=== PATIENT | female | born 1985 | race American Indian/Alaskan Native ===

== ENCOUNTER 2017-01-10 21:03 | Emergency (ER) | payer SELFPAY ==
[2017-01-10 21:25] VITALS: BP 106/64
--- NOTE | 2017-01-10 22:03 | EDM.PDOC ---
[id number]: GOT BIT IN ABD, [id number] Time Seen by Provider: 01/10/17 22:09 Source of Information: Reports: Patient History Limitations: Reports: No Limitations - History of Present Illness INITIAL COMMENTS - FREE TEXT/NARRATIVE: Red spot on lower abdomen, red swollen tender, started out as small pimple type and getting bigger, able to "squeeze some pus out of it today. 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 Psychiatric History: Reports: Depression - Infectious Disease History Infectious Disease History: Reports: Hepatitis C Social & Family History - Family History Family Medical History: Noncontributory - Tobacco Use Smoking Status *Q: Current Every Day Smoker Years of Tobacco use: 17 Packs/Tins Daily: 1 Second Hand Smoke Exposure: Yes - Caffeine Use Caffeine Use: Reports: Coffee - Recreational Drug Use Recreational Drug Use: Yes Drug Use in Last 12 Months: Yes ED ROS GENERAL - Review of Systems Review Of Systems: See Below Constitutional: Reports: No Symptoms HEENT: Reports: No Symptoms Respiratory: Reports: No Symptoms Cardiovascular: Reports: No Symptoms GI/Abdominal: Reports: No Symptoms Skin: Reports: Wound (mid abdomen above jeans waist red firm ) Neurological: Reports: No Symptoms Psychiatric: Reports: No Symptoms ED EXAM, SKIN/RASH Exam: See Below Exam Limited By: No Limitations General Appearance: Alert, No Apparent Distress Ears: Normal External Exam Throat/Mouth: Normal Inspection Head: Atraumatic Neck: Normal Inspection. No: Lymphadenopathy (L), Lymphadenopathy (R) Respiratory/Chest: No Respiratory Distress, Lungs Clear Cardiovascular: Normal Peripheral Pulses, Regular Rate, Rhythm GI/Abdominal: Normal Bowel Sounds, Soft Extremities: Normal Inspection Neurological: Alert, Oriented Psychiatric: Normal Affect Skin: Warm, Dry, Wound/Incision (3x2cm red indurated firm area with punctate paupular center. ) Associated features: Induration. No: Weeping Course - Vital Signs Last Recorded V/S: Last Vital Signs Temp 97.8 F 01/10/17 21:18 Pulse 80 01/10/17 21:18 Resp 16 01/10/17 21:18 BP 106/64 01/10/17 21:18 Pulse Ox 98 01/10/17 21:18 - Orders/Labs/Meds Meds: Medications Discontinued Medications Generic Name Dose Route Start Last Admin Trade Name Freq PRN Reason Stop Dose Admin Clindamycin HCl 150 mg 01/10/17 22:06 Cleocin PO 01/10/17 22:07 ONETIME ONE Clindamycin HCl 300 mg 01/10/17 22:06 01/10/17 22:21 Cleocin PO 01/10/17 22:07 300 mg ONETIME ONE Administration Departure - Departure Time of Disposition: 22:11 Disposition: Home, Self-Care 01 Condition: Undetermined Clinical Impression: Abscess - Discharge Information Instructions: Abscess, [id number] Forms: ED Department Discharge Additional Instructions: warm pack to area antibiotic ointment and bandaide dressing to area tylenol or ibuprofen for discomfort clindamycin 300mg one three times daily for one week clinic follow up on Sunday if not improving
[2017-01-10] MEDS ORDERED: Clindamycin HCl 150 MG Cap PO ONE ×2 (22:06)
== END 2017-01-10 22:24 | disposition home or self-care (01) ==
LOC: DL.ED 21:03
DX: L02.211 Cutaneous abscess of abdominal wall (principal); J45.909 Unspecified asthma, uncomplicated; F17.210 Nicotine dependence, cigarettes, uncomplicated; Z79.899 Other long term (current) drug therapy; F32.9 Major depressive disorder, single episode, unspecified
CPT/HCPCS: 99282; A9270

== ENCOUNTER 2019-07-12 17:22 | Emergency (ER) | payer SELFPAY ==
[2019-07-12 17:37] VITALS: BP 103/67; PULSE 82
[2019-07-12] MEDS ORDERED: Sodium Chloride 0.9% 10 ML Syringe FLUSH PRN (17:41)
--- NOTE | 2019-07-12 18:30 | EDM.PDOC ---
Scribed by Yenifer Dee 07/12/19 1820 for Stu Denis MD ED HPI GENERAL MEDICAL PROBLEM - General Chief Complaint: Upper Extremity Injury/Pain Stated Complaint: LEFT HAND RING FINGER POSSIBLE BOIL PER PT Time Seen by Provider: 07/12/19 17:36 Source of Information: Reports: Patient, RN, RN Notes Reviewed History Limitations: Reports: No Limitations - History of Present Illness INITIAL COMMENTS - FREE TEXT/NARRATIVE: Patient presents to ER with redness and swelling to right ring finger x1 week, squeezed it today and then started having a red line gong up hand. Onset Date: 07/05/19 Duration: Getting Worse Location: Reports: Upper Extremity, Right Quality: Reports: Ache Severity: Moderate Improves with: Reports: None Worsens with: Reports: None Associated Symptoms: Reports: No Other Symptoms Right Finger-Ring Pain Score (Numeric/FACES): 5 - Related Data Allergies Allergy/AdvReac Type Severity Reaction Status Date / Time No Known Allergies Allergy Verified 07/12/19 17:34 Home Meds: Home Meds Gabapentin [Neurontin] 1 tab PO TID 01/10/17 [History] Sertraline [Zoloft] 1 tab PO DAILY 01/10/17 [History] traZODone 1 tab PO BEDTIME 01/10/17 [History] Past Medical History Respiratory History: Reports: Asthma Gastrointestinal History: Reports: Hepatitis Musculoskeletal History: Reports: Other (See Below) Other Musculoskeletal History: 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 ED EXAM, GENERAL - Physical Exam Exam: See Below Exam Limited By: No Limitations General Appearance: Alert, WD/WN, No Apparent Distress Eye Exam: Bilateral Eye: EOMI, Normal Inspection, PERRL Ears: Normal External Exam, Normal Canal, Hearing Grossly Normal, Normal TMs Nose: Normal Inspection, Normal Mucosa, No Blood Throat/Mouth: Normal Inspection, Normal Lips, Normal Teeth, Normal Gums, Normal Oropharynx, Normal Voice, No Airway Compromise Head: Atraumatic, Normocephalic Neck: Normal Inspection, Supple, Non-Tender, Full Range of Motion Respiratory/Chest: No Respiratory Distress, Lungs Clear Cardiovascular: Regular Rate, Rhythm Course - Vital Signs Last Recorded V/S: Last Vital Signs Temp 98.5 F 07/12/19 17:35 Pulse 82 07/12/19 17:35 Resp 16 07/12/19 17:35 BP 103/67 07/12/19 17:35 Pulse Ox 100 07/12/19 17:35 - Orders/Labs/Meds Orders: Active Orders 24 hr Category Date Time Status Peripheral IV Care [RC] . DIRECTED Care 07/12/19 17:41 Active CULTURE BLOOD [BC] Stat Lab 07/12/19 17:42 Received Sodium Chloride 0.9% [Saline Flush] Med 07/12/19 17:41 Active 10 ml FLUSH ASDIRECTED PRN Vancomycin 1 gm Med 07/12/19 17:41 Active Sodium Chloride 0.9% [Normal Saline] 250 ml IV ONETIME Peripheral IV Insertion Adult [OM.PC] Stat Oth 07/12/19 17:41 Ordered Medication Orders Vancomycin HCl 1 gm/ Sodium (Chloride) 250 mls @ 167 mls/hr IV ONETIME ONE Stop: 07/12/19 19:10 Last Admin: 07/12/19 17:50 Dose: 167 mls/hr Sodium Chloride (Saline Flush) 10 ml FLUSH ASDIRECTED PRN PRN Reason: Keep Vein Open Last Admin: 07/12/19 17:50 Dose: 10 ml Labs: Laboratory Tests 07/12/19 07/12/19 Range/Units 17:42 17:42 WBC 10.3 H (5.0-10.0) 10^3/uL RBC 4.79 (4.2-5.4) 10^6/uL Hgb 14.8 (12.0-16.0) g/dL Hct 42.5 (37.0-47.0) % MCV 88.7 (80-100) fL MCH 30.9 (27.0-34.0) pg MCHC 34.8 (33.0-35.0) g/dL Plt Count 248 (150-450) 10^3/uL Neut % (Auto) 53.3 (42.2-75.2) % Lymph % (Auto) 35.8 (20.5-50.1) % [place] % (Auto) 7.6 (2-8) % Eos % (Auto) 2.7 (1.0-3.0) % Baso % (Auto) 0.6 (0.0-1.0) % C-Reactive Protein 0.6 (0.0-1.3) mg/dL Meds: Medications Generic Name Dose Route Start Last Admin Trade Name Freq PRN Reason Stop Dose Admin Vancomycin HCl 1 gm/ Sodium 250 mls @ 167 mls/hr 07/12/19 17:41 07/12/19 17: 50 Chloride IV 07/12/19 19:10 167 mls/hr ONETIME ONE Administration Sodium Chloride 10 ml 07/12/19 17:41 07/12/19 17:50 Saline Flush FLUSH 10 ml ASDIRECTED PRN Administration Keep Vein Open Departure - Departure Time of Disposition: 18:27 Disposition: Home, Self-Care 01 Condition: Good Clinical Impression: Cellulitis of right ring finger - Discharge Information *PRESCRIPTION DRUG MONITORING PROGRAM REVIEWED*: Not Applicable *COPY OF PRESCRIPTION DRUG MONITORING REPORT IN PATIENT MAX: Not Applicable Instructions: Cellulitis, Adult Forms: ED Department Discharge Additional Instructions: Rx: Bactroban Ointment 2% Rx: Cephalexin 500mg Rx: Bactrim DS Follow up in clinic if not improving in 2 to 3 days. Return to ER if worse at any time. Do not squeeze it! Sepsis Event Note - Focused Exam Vital Signs: Vital Signs Temp Pulse Resp BP Pulse Ox 07/12/19 17:35 98.5 F 82 16 103/67 100 Date Exam was Performed: 07/12/19 Time Exam was Performed: 18:26 - My Orders Last 24 Hours: My Active Orders 07/12/19 17:41 Peripheral IV Care [RC] . DIRECTED Sodium Chloride 0.9% [Saline Flush] 10 ml FLUSH ASDIRECTED PRN Vancomycin 1 gm Sodium Chloride 0.9% [Normal Saline] 250 ml IV ONETIME Peripheral IV Insertion Adult [OM.PC] Stat 07/12/19 17:42 CULTURE BLOOD [BC] Stat - Assessment/Plan Last 24 Hours: My Active Orders 07/12/19 17:41 Peripheral IV Care [RC] . DIRECTED Sodium Chloride 0.9% [Saline Flush] 10 ml FLUSH ASDIRECTED PRN Vancomycin 1 gm Sodium Chloride 0.9% [Normal Saline] 250 ml IV ONETIME Peripheral IV Insertion Adult [OM.PC] Stat 07/12/19 17:42 CULTURE BLOOD [BC] Stat I have read and agree with the documentation that has been completed regarding this visit. By signing this record, I attest that the documentation was completed in my physical presence and is an accurate record of the encounter.
== END 2019-07-12 19:33 | disposition home or self-care (01) ==
LOC: DL.ED 17:22
DX: L03.011 Cellulitis of right finger (principal); F32.9 Major depressive disorder, single episode, unspecified; J45.909 Unspecified asthma, uncomplicated
CPT/HCPCS: 36415; 85025; 86140; 87040; 96365; 96366; 99283; J3370; J7050

== ENCOUNTER 2020-02-12 22:19 | Day surgery (SDC) | payer OTHER ==
[2020-02-12] MEDS ORDERED: Sodium Chloride 0.9% 10 ML Syringe FLUSH PRN (22:31)
--- NOTE | 2020-02-12 22:31 | EDM.PDOC ---
ED HPI GENERAL MEDICAL PROBLEM - General Chief Complaint: Abdominal Pain Stated Complaint: PT SAYS SEVERE ABDOMINAL PAIN FOR PAST 6 HOURS Time Seen by Provider: 02/12/20 22:31 Source of Information: Reports: Patient, RN, RN Notes Reviewed History Limitations: Reports: No Limitations - History of Present Illness INITIAL COMMENTS - FREE TEXT/NARRATIVE: Patient presents to ER with complaint of severe abdominal pain. Patient states the pain is approximately a 6/10, but can get to be a 10/10. Patient states the pain began shortly after 3 PM today. Has had nausea and vomiting, small bouts of diarrhea, patient's states somewhat loose but not watery. Patient admits to the chills, unsure of fever. Patient denies any known exposure to COVID, and has not been tested. Patient denies chances of , states menses is currently occurring. Admits to still having her gallbladder and appendix. Patient states the pain began with a burning sensation in the epigastrium. She states she read some things on the Internet, drink water with baking soda and it and states that helped the burning sensation, but the pain began to get worse. Patient denies any past medical history. Onset: Today, Sudden Upper Abdominal Pain Score (Numeric/FACES): 6 - Related Data Allergies Allergy/AdvReac Type Severity Reaction Status Date / Time No Known Allergies Allergy Verified 02/12/20 22:33 Home Meds: Home Meds . 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: hepatitis Neurological History: Reports: None Psychiatric History: Reports: Depression Endocrine/Metabolic History: Reports: None Hematologic History: Reports: None Immunologic History: Reports: None Oncologic (Cancer) History: Reports: None Dermatologic History: Reports: None - Infectious Disease History Infectious Disease History: Reports: Hepatitis C - Past Surgical History Head Surgeries/Procedures: Reports: None Social & Family History - Family History Family Medical History: Noncontributory - Caffeine Use Caffeine Use: Reports: Coffee ED ROS GENERAL - Review of Systems Review Of Systems: Comprehensive ROS is negative, except as noted in HPI. ED EXAM, GI/ABD - Physical Exam Exam: See Below Exam Limited By: No Limitations General Appearance: Alert, WD/WN, Moderate Distress Eyes: Bilateral: Normal Appearance, EOMI Ears: Normal External Exam, Hearing Grossly Normal Nose: Normal Inspection Throat/Mouth: Normal Inspection, Normal Voice, No Airway Compromise Head: Atraumatic, Normocephalic Neck: Normal Inspection, Supple, Non-Tender, Full Range of Motion Respiratory/Chest: No Respiratory Distress, Lungs Clear, Normal Breath Sounds, No Accessory Muscle Use, Chest Non-Tender Cardiovascular: Normal Peripheral Pulses, Regular Rate, Rhythm, No Edema, No Gallop, No JVD, No Murmur, No Rub GI/Abdominal Exam: Normal Bowel Sounds, Soft, No Organomegaly, No Distention, No Abnormal Bruit, No Mass, Pelvis Stable, Tender (diffuse) (Female) Exam: Deferred Rectal (Female) Exam: Deferred Back Exam: Normal Inspection, Full Range of Motion, NT Extremities: Normal Inspection, Normal Range of Motion, Non-Tender, Normal Capillary Refill, No Pedal Edema Neurological: Alert, Oriented, CN II-XII Intact, Normal Cognition, Normal Gait, Normal Reflexes, No Motor/Sensory Deficits Psychiatric: Normal Affect, Normal Mood Skin Exam: Warm, Dry, Intact, Normal Color, No Rash Lymphatic: No Adenopathy Course - Vital Signs Last Recorded V/S: Last Vital Signs Temp 98.0 F 02/12/20 22:48 Pulse 88 02/12/20 22:48 Resp 18 02/12/20 22:48 BP 100/53 L 02/12/20 22:48 Pulse Ox 98 02/12/20 22:48 - Orders/Labs/Meds Orders: Active Orders 24 hr Category Date Time Status Admission Diagnosis [ADT] Stat ADT 02/13/20 00:07 Ordered Patient Status [ADT] Routine ADT 02/13/20 00:07 Active Nothing Per Oral Diet [DIET] Diet 02/13/20 Breakfast Active DRUG SCREEN URINE BIORAD [URCHEM] Stat Lab 02/12/20 22:32 Ordered HCG QUALITATIVE,URINE [URCHEM] Stat Lab 02/12/20 22:31 Ordered UA RFX YASH AND CULT IF INDIC [URIN] Stat Lab 02/12/20 22:32 Ordered Piperacillin/Tazobactam [Zosyn] 3.375 gm Med 02/13/20 00:09 Active Sodium Chloride 0.9% [Normal Saline] 100 ml IV ONETIME Sodium Chloride 0.9% [Normal Saline] 1,000 ml Med 02/13/20 00:09 Active IV CONTINUOUS Sodium Chloride 0.9% [Saline Flush] Med 02/12/20 22:31 Active 10 ml FLUSH ASDIRECTED PRN Peripheral IV Insertion Adult [OM.PC] Stat Oth 02/12/20 22:31 Ordered Medication Orders Piperacillin Sod/Tazobactam (Sod 3.375 gm/ Sodium Chloride) 100 mls @ 200 mls/hr IV ONETIME ONE Stop: 02/13/20 00:38 Sodium Chloride (Normal Saline) 1,000 mls @ 150 mls/hr IV CONTINUOUS ONE Stop: 02/13/20 06:48 Sodium Chloride (Saline Flush) 10 ml FLUSH ASDIRECTED PRN PRN Reason: Keep Vein Open Last Admin: 02/12/20 23:01 Dose: 10 ml Documented by: DEVORA Labs: Laboratory Tests 02/12/20 02/12/20 Range/Units 22:34 22:34 WBC 14.4 H (5.0-10.0) 10^3/uL RBC 4.47 (4.2-5.4) 10^6/uL Hgb 13.8 (12.0-16.0) g/dL Hct 39.9 (37.0-47.0) % MCV 89.3 (80-100) fL MCH 30.9 (27.0-34.0) pg MCHC 34.6 (33.0-35.0) g/dL Plt Count 277 (150-450) 10^3/uL Neut % (Auto) 82.2 H (42.2-75.2) % Lymph % (Auto) 11.1 L (20.5-50.1) % [place] % (Auto) 5.2 (2-8) % Eos % (Auto) 1.4 (1.0-3.0) % Baso % (Auto) 0.1 (0.0-1.0) % Sodium 140 (136-145) mmol/L Potassium 3.5 (3.5-5.1) mmol/L Chloride 102 (98-107) mmol/L Carbon Dioxide 26 (21-32) mmol/L Anion Gap 15.5 H (7-13) mEq/L BUN 10 (7-18) mg/dL Creatinine 1.01 (0.55-1.02) mg/dL Est Cr Clr Drug Dosing 75.60 mL/min Estimated GFR (MDRD) > 60 BUN/Creatinine Ratio 9.9 (No establ ref range) Glucose 95 (74-99) mg/dL Calcium 8.9 (8.5-10.1) mg/dL Total Bilirubin 0.6 (0.2-1.0) mg/dL AST 17 (15-37) U/L ALT 25 (14-59) U/L Alkaline Phosphatase 45 L (46-116) U/L Total Protein 7.7 (6.4-8.2) g/dL Albumin 4.3 (3.4-5.0) g/dL Globulin 3.4 Albumin/Globulin Ratio 1.3 Amylase 42 (25-115) U/L Lipase 89 (73-393) U/L Meds: Medications Generic Name Dose Route Start Last Admin Trade Name Freq PRN Reason Stop Dose Admin Piperacillin Sod/Tazobactam 100 mls @ 200 mls/hr 02/13/20 00:09 Sod 3.375 gm/ Sodium Chloride IV 02/13/20 00:38 ONETIME ONE Sodium Chloride 1,000 mls @ 150 mls/hr 02/13/20 00:09 Normal Saline IV 02/13/20 06:48 CONTINUOUS ONE Sodium Chloride 10 ml 02/12/20 22:31 02/12/20 23:01 Saline Flush FLUSH 10 ml ASDIRECTED PRN Administration Keep Vein Open Discontinued Medications Generic Name Dose Route Start Last Admin Trade Name Freq PRN Reason Stop Dose Admin Fentanyl 50 mcg 02/13/20 00:07 Sublimaze IVPUSH 02/13/20 00:08 ONETIME ONE Sodium Chloride 1,000 mls @ 999 mls/hr 02/12/20 22:51 02/12/20 23:01 Normal Saline IV 02/12/20 23:51 999 mls/hr .BOLUS ONE Administration Iopamidol 100 ml 02/12/20 23:04 02/12/20 23:15 Isovue-300 (61%) IVPUSH 02/12/20 23:05 100 ml ONETIME ONE Administration Ondansetron HCl 4 mg 02/12/20 22:51 02/12/20 23:02 Zofran IV 02/12/20 22:52 4 mg ONETIME ONE Administration - Radiology Interpretation Free Text/Narrative:: CT Abdomen/Pelvis with contrast: Addendum created by Omid Gandhi MD on 02/12/2020 11:58 PM Central Time ([place] & [place]) Results of this exam were communicated by phone Denita Siu at02/12/2020 11:33 PM with the recieving practioner acknowleging understanding of exam results. Initial Report created on 02/12/2020 11:55 PM Central Time ([place] & [place]) PROCEDURE INFORMATION: Exam: CT Abdomen And Pelvis With Contrast Exam date and time: 02/12/2020 11:33 PM Age: 34 years old Clinical indication: Other: Pain; Additional info: Diffuse abd pain, wbc 14.4 TECHNIQUE: Imaging protocol: Computed tomography of the abdomen and pelvis with intravenous contrast. Radiation optimization: All CT scans at this facility use at least one of these dose optimization techniques: automated exposure control; mA and/or kV adjustment per patient size (includes targeted exams where dose is matched to clinical indication); or iterative reconstruction. Contrast material: [id number]; Contrast volume: 75 ml; Contrast route: INTRAVENOUS (IV); COMPARISON: No relevant prior studies available. FINDINGS: Liver: Normal. No mass. Gallbladder and bile ducts: Normal. No calcified stones. No ductal dilation. Pancreas: Normal. No ductal dilation. Spleen: Normal. No splenomegaly. Adrenals: Normal. No mass. Kidneys and ureters: Normal. No hydronephrosis. Stomach and bowel: Unremarkable. No obstruction. No mucosal thickening. Appendix: The appendix demonstrates diffuse distention, measuring up to 12 mm, consistent with mild or early acute appendicitis. There is mild periappendiceal inflammatory change. Intraperitoneal space: Unremarkable. No free air. No significant fluid collection. Vasculature: Unremarkable. No abdominal aortic aneurysm. Lymph nodes: Unremarkable. No enlarged lymph nodes. Bladder: Unremarkable as visualized. Reproductive: Right adnexal cyst measuring 8 cm which is a complex cyst sugges tive of hemorrhagic cyst Bones/joints: Unremarkable. No acute fracture. Soft tissues: Unremarkable. IMPRESSION: 1. Acute appendicitis without evidence of appendiceal perforation or abscess. 2. Large right adnexal cyst measuring 8.1 cm which may represent hemorrhagic cyst. Thank you for allowing us to participate in the care of your patient. Dictated and Authenticated by: Omid Gandhi MD 02/12/2020 11:55 PM Central Time ([place] & [place]) See rad report - Re-Assessments/Exams Free Text/Narrative Re-Assessment/Exam: 02/13/20 00:15 Discussed patient case with Dr. Dos Santos who states the patient can be admitted to the medical floor and surgery will be done in the morning. Departure - Departure Time of Disposition: 00:19 Disposition: Refer to Observation Condition: Fair Clinical Impression: Hemorrhagic cyst of right ovary Appendicitis Qualifiers: Appendicitis type: acute appendicitis Acute appendicitis type: with localized peritonitis Appendicitis gangrene presence: without gangrene Appendicitis perforation presence: without perforation Appendicitis abscess presence: without abscess Qualified Code(s): K35.30 - Acute appendicitis with localized peritonitis, without perforation or gangrene - Discharge Information *PRESCRIPTION DRUG MONITORING PROGRAM REVIEWED*: No *COPY OF PRESCRIPTION DRUG MONITORING REPORT IN PATIENT MAX: No Forms: ED Department Discharge Sepsis Event Note (ED) - Focused Exam Vital Signs: Vital Signs Temp Pulse Resp BP Pulse Ox 02/12/20 22:48 98.0 F 88 18 100/53 L 98 - My Orders Last 24 Hours: My Active Orders 02/12/20 22:31 HCG QUALITATIVE,URINE [URCHEM] Stat Sodium Chloride 0.9% [Saline Flush] 10 ml FLUSH ASDIRECTED PRN Peripheral IV Insertion Adult [OM.PC] Stat 02/12/20 22:32 DRUG SCREEN URINE BIORAD [URCHEM] Stat UA RFX YASH AND CULT IF INDIC [URIN] Stat 02/13/20 00:07 Admission Diagnosis [ADT] Stat Patient Status [ADT] Routine 02/13/20 00:09 Piperacillin/Tazobactam [Zosyn] 3.375 gm Sodium Chloride 0.9% [Normal Saline] 100 ml IV ONETIME Sodium Chloride 0.9% [Normal Saline] 1,000 ml IV CONTINUOUS 02/13/20 Breakfast Nothing Per Oral Diet [DIET] - Assessment/Plan Last 24 Hours: My Active Orders 02/12/20 22:31 HCG QUALITATIVE,URINE [URCHEM] Stat Sodium Chloride 0.9% [Saline Flush] 10 ml FLUSH ASDIRECTED PRN Peripheral IV Insertion Adult [OM.PC] Stat 02/12/20 22:32 DRUG SCREEN URINE BIORAD [URCHEM] Stat UA RFX YASH AND CULT IF INDIC [URIN] Stat 02/13/20 00:07 Admission Diagnosis [ADT] Stat Patient Status [ADT] Routine 02/13/20 00:09 Piperacillin/Tazobactam [Zosyn] 3.375 gm Sodium Chloride 0.9% [Normal Saline] 100 ml IV ONETIME Sodium Chloride 0.9% [Normal Saline] 1,000 ml IV CONTINUOUS 02/13/20 Breakfast Nothing Per Oral Diet [DIET]
[2020-02-12] MEDS ORDERED: Ondansetron 4 MG/2 ML SDV IV ONE (22:51)
[2020-02-12] MEDS ORDERED: Sodium Chloride 0.9% 1,000 ML IV ONE (22:51)
[2020-02-12 23:00] LABS: ANION GAP 15.5 mEq/L (7-13); CHLORIDE,CL 102 mmol/L (98-107); SODIUM,NA 140 mmol/L (136-145)
[2020-02-12] MEDS ORDERED: Iopamidol 612 MG/ML 100 ML Bottle IVPUSH ONE (23:04)
--- NOTE | 2020-02-12 23:55 | CT ---
PROCEDURE INFORMATION: Exam: CT Abdomen And Pelvis With Contrast Exam date and time: 02/12/2020 11:33 PM Age: 34 years old Clinical indication: Other: Pain; Additional info: Diffuse abd pain, wbc 14.4 TECHNIQUE: Imaging protocol: Computed tomography of the abdomen and pelvis with intravenous contrast. Radiation optimization: All CT scans at this facility use at least one of these dose optimization techniques: automated exposure control; mA and/or kV adjustment per patient size (includes targeted exams where dose is matched to clinical indication); or iterative reconstruction. Contrast material: [id number]; Contrast volume: 75 ml; Contrast route: INTRAVENOUS (IV); COMPARISON: No relevant prior studies available. FINDINGS: Liver: Normal. No mass. Gallbladder and bile ducts: Normal. No calcified stones. No ductal dilation. Pancreas: Normal. No ductal dilation. Spleen: Normal. No splenomegaly. Adrenals: Normal. No mass. Kidneys and ureters: Normal. No hydronephrosis. Stomach and bowel: Unremarkable. No obstruction. No mucosal thickening. Appendix: The appendix demonstrates diffuse distention, measuring up to 12 mm, consistent with mild or early acute appendicitis. There is mild periappendiceal inflammatory change. Intraperitoneal space: Unremarkable. No free air. No significant fluid collection. Vasculature: Unremarkable. No abdominal aortic aneurysm. Lymph nodes: Unremarkable. No enlarged lymph nodes. Bladder: Unremarkable as visualized. Reproductive: Right adnexal cyst measuring 8 cm which is a complex cyst suggestive of hemorrhagic cyst Bones/joints: Unremarkable. No acute fracture. Soft tissues: Unremarkable. IMPRESSION: 1. Acute appendicitis without evidence of appendiceal perforation or abscess. 2. Large right adnexal cyst measuring 8.1 cm which may represent hemorrhagic cyst.
[2020-02-13] MEDS ORDERED: fentaNYL 100 MCG/2 ML SDV IVPUSH ONE (00:07)
[2020-02-13] MEDS ORDERED: Piperacillin/Tazobactam 3.375 GM in Sodium Chloride 0.9% 100 ML IV ONE (00:09)
[2020-02-13] MEDS ORDERED: Sodium Chloride 0.9% 1,000 ML IV ONE (00:09)
[2020-02-13] MEDS ORDERED: fentaNYL 100 MCG/2 ML SDV IV ONE (00:27)
[2020-02-13] MEDS ORDERED: Ketorolac 30 MG/ML SDV IVPUSH ONE (00:27)
[2020-02-13] MEDS ORDERED: Rocuronium 100 MG/10 ML MDV IV ONE (00:27)
[2020-02-13] MEDS ORDERED: Lactated Ringers 1,000 ML IV ONE (00:27)
[2020-02-13] MEDS ORDERED: fentaNYL 250 MCG/5 ML SDV IV ONE (00:27)
[2020-02-13] MEDS ORDERED: Lidocaine 2% 20 ML MDV ONE (00:27)
[2020-02-13] MEDS ORDERED: Dexamethasone 4 MG/ML SDV IV ONE (00:27)
[2020-02-13] MEDS ORDERED: Ondansetron 4 MG/2 ML SDV IV ONE ×2 (00:27→02:19)
[2020-02-13] MEDS ORDERED: Midazolam 1 MG/ML 2 ML SDV IV ONE (00:27)
[2020-02-13] MEDS ORDERED: HYDROmorphone 0.5 MG/0.5 ML Syringe IV ONE (00:27)
[2020-02-13] MEDS ORDERED: Propofol 200 MG/20 ML SDV IV ONE (00:27)
[2020-02-13] MEDS ORDERED: HYDROmorphone 0.5 MG/0.5 ML Syringe IVPUSH ONE ×2 (02:18→06:14)
[2020-02-13] MEDS ORDERED: Scopolamine 1.5 MG Transdermal Patch TRDERM ONE (07:40)
--- NOTE | 2020-02-13 08:37 | HP ---
INTRODUCTION: This 34-year-old female presented to the emergency room last night with a 6-hour history of abdominal pain, was maximally located in the right lower quadrant, but she did have some radiation to the epigastric area. She initially thought she had some dyspepsia and took some baking soda, but she did not improve. She presented to the emergency room. In the emergency room, CBC showed elevated white blood cell count to 14,000, and a CT scan that was compatible with appendicitis. Incidentally, she has an 8 cm cyst on 1 ovary. PAST MEDICAL HISTORY: ALLERGIES: Patient has no allergies. CURRENT MEDICATIONS: None. PRIOR SURGERIES: [place] teeth extraction. 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 She does not smoke cigarettes, but does vape. REVIEW OF SYSTEMS: Positive for childhood asthma. Currently does not use inhalers. PHYSICAL EXAMINATION: HEENT: Normal. Chest: Lungs are clear bilaterally. Heart: Normal sinus rhythm. Abdomen: Tender in the right lower quadrant. She does have some pain in the left lower quadrant also. Bowel sounds are hypoactive. Extremities: Have good range of motion. Neurologic: Grossly intact. ASSESSMENT: Acute appendicitis. PLAN: I discussed the risks, benefits, and expected outcomes of a laparoscopic appendectomy with this patient. She was admitted through the night by the emergency room for fluid hydration, antibiotics and pain control. For the present time now, she is presented for surgery. [facility] /[id number]
[2020-02-13] MEDS ORDERED: Lactated Ringers 1,000 ML IV SCH (08:50)
[2020-02-13] MEDS ORDERED: Sodium Chloride 0.9% 10 ML Syringe FLUSH PRN (11:02)
[2020-02-13] MEDS: Acetaminophen/oxyCODONE 325-5 MG Tab PO PRN ×3 (11:55→20:05)
--- NOTE | 2020-02-13 12:32 | OR ---
DATE: 02/13/2020 PREOPERATIVE DIAGNOSIS: Acute appendicitis and 8 cm right ovarian cyst/mass. POSTOPERATIVE DIAGNOSIS: Acute appendicitis and 8 cm right ovarian cyst/mass. PROCEDURE: Laparoscopic appendectomy and right salpingo-oophorectomy. GREEN CHAIN WORKER: Jarrett Pacheco MD ANESTHESIA: General. ESTIMATED BLOOD LOSS: Minimum. SPECIMENS: Appendix and right ovary. INDICATION FOR PROCEDURE: This 34-year-old female presents to the emergency room with a history and physical compatible with appendicitis. She has a 14,000 white blood cell count and a CT scan that shows appendicitis of incidental note. She has an 8 cm ovarian cyst or mass in the pelvis. PROCEDURE IN DETAIL: After adequate preparation, an infraumbilical incision was made and a Veress needle placed intra-abdominally for insufflation. Two other midline trocars were then placed under direct vision. She did indeed have a large right ovarian mass. HVAC JOURNEYMAN, Dr. Pacheco was consulted and scrubbed in with the case at that point. The appendix was also identified and was indeed acute appendicitis, nonperforated. A 45 mm stapling device was used to transect base of the mesoappendix and then a 2nd firing was used to amputate the appendix at the base of the cecum. Hemostasis along the staple line was controlled with cautery. The appendix was brought out through the suprapubic trocar site. In evaluation of the right ovarian mass, I had discussed preoperatively with the patient that we would look at the ovarian mass and make a decision what to do with that intraoperatively. Dr. Pacheco scrubbed in and tried to aspirate the cyst, but there was actually no fluid. He determined this is most likely a solid mass and not a cyst. Due to its size of 8 or 9 cm, we decided to remove the ovary. A stapling device was then used to transect the mesentery of the fallopian tube intact with the ovary. This was then brought out through the suprapubic trocar site by extending the fascial incision. The incision was then reclosed using a 0 Vicryl for the peritoneal lining and a 0 Vicryl for the anterior rectus sheath. Vicryl was used for the skin. [facility] /[id number]
[2020-02-13] MEDS ORDERED: Simethicone 80 MG Tab.Chew PO PRN (20:45)
[2020-02-14] MEDS: Morphine 2 MG/ML SYRINGE IVPUSH PRN ×2 (01:20→06:54)
[2020-02-14] MEDS: Acetaminophen/oxyCODONE 325-5 MG Tab PO PRN ×2 (01:21→06:56)
--- NOTE | 2020-02-14 07:54 | PCM.SN.2 ---
- Free Text/Narrative Note: Stable POD #1. Alert. Wounds clean and dry. Pain controlled. PO liquid tolerated. Ambulates without assist. Can discharge today. Will FU my clinic if needed. No restrictiona on diet or activity. May return to work on Jan. Percocet #10 given for pain.
[2020-02-14 08:48] VITALS: BP 103/55; PULSE 64
== END 2020-02-14 09:00 | disposition home or self-care (01) ==
LOC: DL.ED 22:19 → DL.SDS 02-13 00:26
PROVIDERS: ATTEND Surgery
DX: K35.80 Unspecified acute appendicitis (principal); D27.0 Benign neoplasm of right ovary; N80.1 Endometriosis of ovary; N70.01 Acute salpingitis; J45.909 Unspecified asthma, uncomplicated; F32.9 Major depressive disorder, single episode, unspecified; F17.290 Nicotine dependence, other tobacco product, uncomplicated; Z11.59 Encounter for screening for other viral diseases
CPT/HCPCS: 36415; 44970; 58661; 74177; 80053; 80305; 81003; 81025; 82150; 83690; 85025; 87635; 96361; 96374; 99284; 99285; A9270; J1100; J1170; J1885; J2001; J2250; J2270; J2405; J2543; J2704; J3010; J7030; J7050; J7120; Q9967; U0002